=== PATIENT | female | born 1980 | race Caucasian/White ===

== ENCOUNTER 2025-01-30 06:26 | Day surgery (SDC) | payer BC, SELFPAY | END 2025-01-30 14:48 | disposition home or self-care (01) | LOC: GI 06:26 | PROVIDERS: ATTENDING PHYSICIAN Internal Medicine Gastroenterology | DX: R10.12 Left upper quadrant pain (principal); R11.2 Nausea with vomiting, unspecified; D64.9 Anemia, unspecified; K44.9 Diaphragmatic hernia without obstruction or gangrene; D50.0 Iron deficiency anemia secondary to blood loss (chronic); K29.50 Unspecified chronic gastritis without bleeding; K31.89 Other diseases of stomach and duodenum; R89.7 Abnormal histological findings in specimens from other organs, systems and tissues | CPT/HCPCS: 43239; 88305; 88342 ==